=== PATIENT | female | born 1980 | race Caucasian/White ===

== ENCOUNTER 2016-07-24 05:08 | Inpatient (IN) | payer MEDICAID ==
[2016-07-24] MEDS ORDERED: LACTATED RINGERS 1,000 ML ONE (06:58)
[2016-07-24] MEDS ORDERED: IV START KIT ONE (06:58)
[2016-07-24] MEDS ORDERED: LIDOCAINE 1% (PRES FREE) 30 ML VIAL ONE (06:59)
[2016-07-24] MEDS ORDERED: MINERAL OIL 25 ML BOT ONE (06:59)
[2016-07-24] MEDS ORDERED: SODIUM CHLORIDE 0.9% FLUSH 20 ML ONE (06:59)
[2016-07-24] MEDS ORDERED: OXYTOCIN 10 UNITS/ML VIAL ONE (06:59)
[2016-07-24] MEDS ORDERED: PUMP TUBING ONE (07:00)
[2016-07-24] MEDS ORDERED: LIDOCAINE Viscous 2% 15 ML UDCUP ONE (07:00)
[2016-07-24] MEDS ORDERED: OXYTOCIN IN LR 500 ML IV ONE ×2 (07:00→07:21)
[2016-07-24] MEDS ORDERED: LACTATED RINGERS 1,000 ML IV SCH (07:30)
--- NOTE | 2016-07-24 07:38 | PDOC36 ---
Provider Note Subject: cc: Admission H&P HPI: 36 y.o. year old CRUZ 08/06/2016, by Ultrasound at 38w1d. Presents for IOL for A2GDM. REVIEW OF SYSTEMS GENERAL: No fever or headache EYES: No double or blurry vision. CARDIOVASCULAR: No chest pain. RESPIRATORY: No severe shortness of breath or cough. GASTROINTESTINAL: No nausea or vomiting or right upper quadrant pain. PSYCHIATRIC: No anxiety or depression. NO ROM. Good FM. No vb or d/c. PROBLEMS Patient Active Problem List Diagnosis Date Noted Exposure to Zika virus 05/28/2016 GDM, class A2 (HCC) 01/21/2016 01/18/2016 High-risk 01/18/2016 AMA (advanced maternal age) multigravida 35+ 01/18/2016 Dating history: Dating Summary Working CRUZ: 08/06/16 set by Radha Barr PA-C on 02/01/16 based on Ultrasound on 01/31/16 Based On CRUZ GA Dif Comments GA Cyc Lut BC Entered By Date Last Menstrual Period on 10/08/15 (Approximate) 07/14/16 +3w2d Radha Barr PA-C 02/01/16 Ultrasound on 01/31/16 08/06/16 Working dating u/s at [facility]. subchorionic fluid collection. placenta forming posteriorly. 13w1d Radha Barr PA-C Ultrasound on 04/10/16 08/10/16 -4d left choroid plexus cyst 4x3mm, otherwise anatomy survey grossly normal. 2.8 x 1.5 x 2.1 cm subchorionic fluid collection. LUIS subj nml. 22w4d Radha Barr PA-C 04/14/16 OB HISTORY #: 1, Date: [birth year]06[birth year], Sex: Male, Weight: 2.41 kg (5 lb 5 oz), GA: 40w0d, Delivery: Vaginal, Spontaneous Delivery, Apgar1: None, Apgar5: None, Living: Yes , Comments: None #: 2, Date: 10/29/99, Sex: Female, Weight: 3.856 kg (8 lb 8 oz), GA: 40w0d, Delivery: Vaginal, Spontaneous Delivery, Apgar1: None, Apgar5: None, Living: Yes , Comments: None #: 3, Date: 03/05/01, Sex: Female, Weight: 3.402 kg (7 lb 8 oz), GA: 40w0d, Delivery: Vaginal, Spontaneous Delivery, Apgar1: None, Apgar5: None, Living: Yes , Comments: None #: 4, Date: 12/24/03, Sex: Male, Weight: 3.402 kg (7 lb 8 oz), GA: 40w0d, Delivery: Vaginal, Spontaneous Delivery, Apgar1: None, Apgar5: None, Living: Yes , Comments: None #: 5, Date: 08/08/04, Sex: None, Weight: None, GA: 8w0d, Delivery: Spontaneous , Apgar1: None, Apgar5: None, Living: None, Comments: STARTED BLEEDING WAS SEEN @ [facility] WAS TOLD NOT VIABLE , PER U/S DFOB #: 6, Date: 12/15/06, Sex: Male, Weight: 3.175 kg (7 lb), GA: 40w0d, Delivery: Induction, Apgar1: None, Apgar5: None, Living: Yes, Comments: None #: 7, Date: 09/29/09, Sex: Male, Weight: 3.969 kg (8 lb 12 oz), GA: 38w0d, Delivery: Vaginal, Spontaneous Delivery, Apgar1: None, Apgar5: None, Living: Yes , Comments: None #: 8, Current PSH No past surgical history SOC HX reports that she has never smoked. She has never used smokeless tobacco. She reports that she does not drink alcohol or use illicit drugs. ALL No Known Allergies MEDICATIONS Current outpatient prescriptions: hydrOXYzine (VISTARIL) 50 MG capsule, Take 1 capsule (50 mg total) by mouth 3 (three) times a day as needed for itching for up to 10 days., Disp: 30 capsule , Rfl: 3 ivermectin (STROMECTOL) 3 MG tablet, Indications: Scabies. 5 tabs PO x 1. May repeat in 14 days if necessary, Disp: 10 tablet, Rfl: 0 metFORMIN (GLUCOPHAGE) 500 MG tablet, Take 1 tablet (500 mg total) by mouth nightly., Disp: 60 tablet, Rfl: 3 Vit-Fe Fumarate-FA ( PO), Take by mouth., Disp: , Rfl: PHYSICAL EXAMINATION VITAL SIGNS: afebrile, unremarkable Estimated body mass index is 33.76 kg/(m^2) as calculated from the following: Height as of 07/21/16: 1.575 m (5' 2.01"). Weight as of 07/21/16: 83.734 kg (184 lb 9.6 oz). Total weight gain is 10.251 kg (22 lb 9.6 oz) FHT: 140's baseline, mod nuris, + accels, no decels [place]: Intermittent SVE: 3/60/-2, soft, midline GENERAL: No distress CARDIOVASCULAR: Regular rate and rhythm, no murmur, JVD or pedal edema. RESPIRATORY: Clear to auscultation bilaterally, respiratory effort is nonlabored at rest. GASTROINTESTINAL: Gravid no fundal tenderness LABS & STUDIES O+ Antibody- Rubella Immune Hep B- HIV- GC/Chlamydia- Trep- Hgb 13.1 GBS neg ASSESSMENT 36 y.o. year old CRUZ 08/06/2016, by Ultrasound at 38w1d who presents for IOL for A2GDM. PLAN Labor- Favorable cervical exam. Pitocin augmentation and AROM when possible. Anticipate GBS- neg RH + FWB- category I A2GDM- Check BS this am. Has been stable on metformin. Did not take this am. H/o Zika exposure- with symptoms and +testing. I don't see she was ever tested care. She did have several ultrasounds with normal growth and HC. BOth her and her endorse no unprotected intercourse throughout however. No changes in care at this time.
[2016-07-24 07:53] LABS: HEMATOCRIT 35.7 % (37.0-47.0); HEMOGLOBIN 12.2 gm/l (12.0-16.0); MEAN CORPUSCULAR HEMOGLOBIN 30.4 pg (27.0-31.0); MEAN CORPUSCULAR HGB CONC 34.2 g/dl (33.0-37.0); RED CELL DISTRIBUTION WIDTH 12.4 % (11.5-14.5)
[2016-07-24 08:14] VITALS: BMI 30.9
[2016-07-24] MEDS: OXYTOCIN IN LR 500 ML IV PRN ×5 (08:24→11:50)
[2016-07-24] MEDS ORDERED: IBUPROFEN 800 MG TABLET ONE (12:22)
[2016-07-24] MEDS: IBUPROFEN 800 MG TABLET PO PRN ×2 (12:25→20:04)
--- NOTE | 2016-07-24 14:48 | PCMDEL ---
Delivery Note - Labor 1st stage (hr/min):: 3 hours 31 min 2nd stage (hr/min):: 0 min 3rd stage (hr/min):: 5 min Total (hr/min):: 3 hours Pushed (hr/min):: 0 min - Delivery Delivery (Date): 07/24/16 Delivery (Time): 11:55 Gender: Female Length: 1 ft 7 in Position: OA Umbilical Cord: 3 Vessel Delayed Cord Clamping:: 2-3 min 1 Minute Total: 9 5 Minute Total: 9 Placenta:: intact EBL:: 300 Comments:: Presented for IOl for A2GDM. Pitocin augmentation started and later AROM completed. Patient progressed on fast course to complete and then precipitously delivered via without complications. FM reassuring throughout. Vigorous . Nuchal x 1 easily reduced after delivery. Delayed cord clamping as infant on maternal chest. Active third stage of labor.
[2016-07-24] MEDS ORDERED: BENZOCAINE/MENTHOL 60 APPLIC/BOT TP PRN (14:53)
[2016-07-24] MEDS ORDERED: HYDROCODONE/ACETAMINOPHEN 5/325MG TABLET PO PRN (14:53)
[2016-07-24] MEDS ORDERED: LANOLIN 50 APPLIC/7G TUBE TP PRN (14:53)
[2016-07-24] MEDS ORDERED: DOCUSATE SODIUM 100 MG CAPSULE PO PRN (14:53)
[2016-07-25 06:46] LABS: HEMATOCRIT 34.2 % (37.0-47.0); HEMOGLOBIN 11.6 gm/l (12.0-16.0)
[2016-07-25] MEDS ORDERED: FENTANYL 100 MCG/2 ML VIAL ONE (07:10)
[2016-07-25] MEDS ORDERED: SPINAL PROCEDURAL TRAY 1 EACH ONE (07:10)
[2016-07-25] MEDS ORDERED: MIDAZOLAM HCL 1 MG/ML 2ML VIAL ONE (07:10)
[2016-07-25] MEDS: LACTATED RINGERS 1,000 ML IV SCH ×4 (07:12→22:10)
[2016-07-25] MEDS ORDERED: CEFAZOLIN SODIUM 1,000 MG VIAL ONE ×2 (07:40)
[2016-07-25] MEDS ORDERED: BENZOCAINE/MENTHOL 60 APPLIC/BOT TP PRN (08:21)
[2016-07-25] MEDS ORDERED: LANOLIN 50 APPLIC/7G TUBE TP PRN (08:21)
--- NOTE | 2016-07-25 08:28 | PCMBTL ---
Brief Post Op Note: Date of Procedure: 07/25/16 Start Time: 729 Preoperative Diagnosis: undesired fertility Postoperative Diagnosis: same Procedure: PP bilateral tubal ligation, lap Surgeon: Fabiana Saxena MD Assist:none Anesthesia: spinal Findings: normal ovaries tubes and uterus Condition: stable Complications: none IV Fluids: 1000 mLs of LR Estimated Blood Loss: 5 mLs
[2016-07-25] MEDS: HYDROCODONE/ACETAMINOPHEN 5/325MG TABLET PO PRN ×4 (10:08→23:26)
[2016-07-25] MEDS: IBUPROFEN 800 MG TABLET PO SCH ×3 (10:09→23:26)
--- NOTE | 2016-07-25 12:47 | PDOC44 ---
- Subjective Day: 1 Doing well. Had PP BTL this AM. Pain increased but controlled. No fever or chills or cp or sob. Reports Flatus, Reports Pain Tolerable, Reports , Denies Nausea, Denies Vomiting - Objective Temp Pulse Resp BP Pulse Ox 98.0 F 62 16 118/77 98 07/25/16 09:43 07/25/16 10:12 07/25/16 10:12 07/25/16 10:12 07/25/16 10:12 Lab Results 07/25/16 06:20 Hgb 11.6 L Hct 34.2 L Current Medications Generic Name Dose Route Start Last Admin Trade Name Freq PRN Reason Stop Dose Admin Acetaminophen/Hydrocodone Bitart 1 - 2 tab 07/25/16 08:21 07/25/16 10:08 [place] 5/325 PO 2 tab Q4H PRN Administration Pain (Moderate) Benzocaine/Menthol 1 applic 07/25/16 08:21 Dermoplast TP PRN PRN Patient Comfort Docusate Sodium 100 mg 07/25/16 08:21 Colace PO DAILY PRN Comfort Emollient Ointment 1 applic 07/25/16 08:21 [id number] TP PRN PRN sore nipples Lactated Ringer's 1,000 mls @ 125 mls/hr 07/24/16 20:45 07/25/16 10:36 Lactated Ringers IV Not Given .Q8H SYED Ibuprofen 800 mg 07/25/16 08:30 07/25/16 10:09 Motrin PO 800 mg Q6H SYED Administration Sodium Chloride 10 ml 07/24/16 14:53 07/25/16 04:19 Normal Saline 10ml Flush IV 10 ml PRN PRN Administration IV Flush Sodium Chloride 10 ml 07/24/16 17:00 07/25/16 10:37 Normal Saline 10ml Flush IV Not Given Q8HR [facility] - Physical Exam General: Afebrile, No Acute Distress Psych/Mental Status: Mood/Affect Appropriate, Judgment/Insight Intact, Bonding Well Neurological: Grossly Intact, Alert, Normal Speech HEENT: Atraumatic, Mucous membr. moist/pink Lungs: Clear to Auscultation Bilaterally Cardiovascular: Regular Rate and Rhythm Breast: Soft Fundus: Firm, Midline, At Umbilicus Abdomen: Tenderness (appropriately post-op) Skin: Normal Color, Warm, Dry, Intact, No Rash - Problems:Assessment/Plan (1) (spontaneous vaginal delivery) Status: AcuteAssessment/Plan: Doing well PPD#1 Routine PP care Support BF (2) Status post tubal ligation Status: AcuteAssessment/Plan: POD#0 Routine post op care (3) Unwanted fertility Status: Acute Disposition: Stable, Anticipate DC Home Tomorrow
[2016-07-25] MEDS: DOCUSATE SODIUM 100 MG CAPSULE PO PRN (14:08)
[2016-07-26] MEDS: IBUPROFEN 800 MG TABLET PO SCH ×2 (05:27→11:50)
[2016-07-26] MEDS: HYDROCODONE/ACETAMINOPHEN 5/325MG TABLET PO PRN ×3 (05:28→12:51)
[2016-07-26] MEDS: LACTATED RINGERS 1,000 ML IV SCH (05:43)
[2016-07-26 06:25] LABS: HEMATOCRIT 32.9 % (37.0-47.0)
[2016-07-26 08:04] VITALS: BP 110/68
--- NOTE | 2016-07-26 10:13 | PDOC39B ---
Hospital Course: ADMIT DATE: 07/24/16 DISCHARGE DATE: 07/26/16 ADMISSION DIAGNOSES: Intrauterine at term, Gestational Diabetes Type A2, Undesired fertility, grand multiparity PROCEDURES: bilateral tubal ligation HISTORY OF PRESENT ILLNESS: 36 year old G8 T6 P A2 L6 at 38 weeks 1 days presented for induction of labor due to GDMA2. HOSPITAL COURSE: The patient had a normal vaginal delivery on 07/24/16 and a bilateral tubal ligation on 07/25/16. By day of discharge the patient is ambulating, eating, voiding, and passing flatus without difficulty. Pain is controlled and lochia is appropriate. She is . - Physical Exam Vital Signs: Temp Pulse Resp BP Pulse Ox 98.3 F 68 18 110/68 98 07/26/16 08:00 07/26/16 08:00 07/26/16 08:00 07/26/16 08:00 07/25/16 10:12 General: Afebrile Psych/Mental Status: Mood/Affect Appropriate, Bonding Well Neurological: Grossly Intact, Alert HEENT: Atraumatic, EOMI Lungs: Clear to Auscultation Bilaterally, Normal Air Movement Cardiovascular: Regular Rate and Rhythm, Normal S1, Normal S2 Breast: Soft Fundus: Firm, Midline, Below Umbilicus Wound: Dressing Clean/Dry/Intact, Well Approximated (steristrips in place) - Discharge Diagnosis (1) (spontaneous vaginal delivery) Status: AcuteAssessment/Plan: Doing well PPD#2 Routine PP care Support BF (2) Status post tubal ligation Status: AcuteAssessment/Plan: POD#1 Routine post op care (3) GDM, class A2 Status: AcuteAssessment/Plan: Will need pp 2h gtt at 6 weeks - Discharge Plan Condition: Stable Disposition: Home Instruction Forms: Vaginal Discharge Instructions Prescriptions: Docusate Sodium [COLACE 100 MG CAPSULE (SHF)] 100 mg PO DAILY PRN #100 capsule PRN Reason: Comfort Ibuprofen [IBUPROFEN 800 MG TABLET (SHF)] 800 mg PO Q8H PRN #100 tablet PRN Reason: Pain Hydrocodone Bit/Acetaminophen [[place]] 1 tab PO Q4H PRN #20 tablet PRN Reason: pain Follow-Up: Radha Barr PA-C [Primary Care Provider] - In 2 weeks (wound check)
[2016-07-26] MEDS: DOCUSATE SODIUM 100 MG CAPSULE PO PRN (11:50)
--- NOTE | 2016-07-29 12:53 | SURGPATH ---
[facility] [address] [place] [id number] Patient Name: HUONG MUHAMMAD MR#: [id number] : 1980 Gender: F Specimen #: [id number] Collected: 07/25/2016 Received: 07/28/2016 Reported: 07/29/2016 Submitting Phys: KWAME EASLEY Copy To Phys: [facility] U[facility] HENDERSON Clinical History / Pre-Operative Diagnosis: None provided Specimen Source / Surgical Procedure Performed: Right fallopian tube segment (with stitch), left fallopian tube segment- tubal ligation Interpretation: RIGHT AND LEFT FALLOPIAN TUBES, BILATERAL PARTIAL SALPINGECTOMIES: - COMPLETE CROSS SECTIONS OF RIGHT AND LEFT FALLOPIAN TUBES Electronically Signed Out Yogesh Almazan M.D. Gross Description: The specimen is received in a formalin filled container labeled with the patient's name and "fallopian tubes". Two cylindrical segments of patricia tissue are 1.0 x 0.5 cm and 1.7 x 0.5 cm. The shorter segment has an attached suture and is inked black. A front desk representative cross-section of each is submitted in one cassette. Rubén Berger Microscopic Description: The sections show complete cross sections of unremarkable right and left fallopian tube segments. [id number]: [id number] Z30.2
== END 2016-07-26 13:09 | disposition home or self-care (01) | DRG 767 ==
LOC: FBC 06:50 → EDSTATUS 08-07 05:07
PROVIDERS: ADMIT Family Medicine; ATTEND Family Medicine
PROC: 10E0XZZ Delivery of Products of Conception, External Approach (ICD-10-PCS; principal; 2016-07-24)
PROC: 10907ZC Drainage of Amniotic Fluid, Therapeutic from Products of Conception, Via Natural or Artificial Opening (ICD-10-PCS; 2016-07-24)
PROC: 0UL74ZZ Occlusion of Bilateral Fallopian Tubes, Percutaneous Endoscopic Approach (ICD-10-PCS; 2016-07-25)
DX: O24.425 Gestational diabetes mellitus in childbirth, controlled by oral hypoglycemic drugs (principal); O09.513 Supervision of elderly primigravida, third trimester; O09.43 Supervision of pregnancy with grand multiparity, third trimester; O62.3 Precipitate labor; O69.81X0 Labor and delivery complicated by cord around neck, without compression, not applicable or unspecified; Z30.2 Encounter for sterilization; Z3A.38 38 weeks gestation of pregnancy; Z37.0 Single live birth